=== PATIENT | female | born 1990 | race Caucasian/White ===

== ENCOUNTER 2017-01-10 17:36 | Emergency (ER) | payer SELFPAY | END 2017-01-10 17:57 | disposition left against medical advice (07) | LOC: ED 17:36 | DX: T62.91XA Toxic effect of unspecified noxious substance eaten as food, accidental (unintentional), initial encounter (principal); Y92.9 Unspecified place or not applicable; Z53.21 Procedure and treatment not carried out due to patient leaving prior to being seen by health care provider ==

== ENCOUNTER 2017-04-05 17:43 | Emergency (ER) | payer SELFPAY ==
[2017-04-05 18:59] LABS: Basophils % (Auto) 0.4 % (0.0-1.8); Eosinophils % (Auto) 0.2 % (0.0-4.3); Hematocrit 37.7 % (30.3-42.9); Hemoglobin 12.7 gm/dl (10.1-14.3); Mean Corpuscular HGB Conc 34 % (30-34); Mean Corpuscular Hemoglobin 31 pg (28-32); Mean Corpuscular Volume 92 fl (79-97); Platelet Count 262 K/mm3 (140-440); Red Blood Count 4.09 M/mm3 (3.65-5.03); Red Cell Distribution Width 13.7 % (13.2-15.2); White Blood Count 9.1 K/mm3 (4.5-11.0)
[2017-04-05] MEDS ORDERED: NACL 0.9% 1000 ML 1,000 ML IV ONE ×2 (19:11→22:19)
[2017-04-05] MEDS ORDERED: ZOFRAN IV ONE ×2 (19:11→23:13)
[2017-04-05] MEDS ORDERED: MORPHINE IV ONE (19:11)
--- NOTE | 2017-04-05 19:18 | Emergency Department Report ---
HPI - General Chief Complaint: Abdominal Pain Time Seen by Provider: 04/05/17 19:00 - HPI HPI: This is a 26-year-old [place] female presents to the emergency department, brought in by her mother, with complaint of generalized abdominal pain, nausea and vomiting and been going on since this morning. She is not taking anything for her symptoms prior to presentation. She says that she had some constipation at first and then diarrhea after that. She does not have any primary care physician. She denies any past medical history. She denies any fever, back pain, chest pain, shortness of breath. No recent travel or sick contacts at home. The abdominal pain is sharp and constant. ED Past Medical Hx - Past Medical History Previous Medical History?: No - Surgical History Past Surgical History?: No - Social History Smoking Status: Never Smoker Substance Use Type: None - Medications Home Medications: Home Medications Medication Instructions Recorded Confirmed Last Taken Type HYDROcodone/APAP 5-325 [[place] 1 each PO Q6HR PRN #8 tablet 04/06/17 Unknown Rx 5/325] Ondansetron [Zofran Odt] 4 mg PO Q8HR PRN #10 tab.rapdis 04/06/17 Unknown Rx ED Review of Systems ROS: Stated complaint: ABDOMINAL PAIN Other details as noted in HPI Comment: All other systems reviewed and negative Constitutional: denies: chills, fever Eyes: denies: eye pain, eye discharge, vision change ENT: denies: ear pain, throat pain Respiratory: denies: cough, shortness of breath, wheezing Cardiovascular: denies: chest pain, palpitations Gastrointestinal: abdominal pain, nausea, vomiting Genitourinary: denies: urgency, dysuria, discharge Musculoskeletal: denies: back pain, joint swelling, arthralgia Skin: denies: rash, lesions Neurological: denies: headache, weakness, paresthesias Physical Exam - Physical Exam Vital Signs: Vital Signs 04/05/17 04/05/17 17:51 18:08 Temperature 97.5 F L Pulse Rate 74 Respiratory 18 Rate Blood Pressure 129/105 [Right] O2 Sat by Pulse 99 100 Oximetry Physical Exam: GENERAL: The patient is well-developed well-nourished. HENT: Normocephalic. Atraumatic. Patient has moist mucous membranes. EYES: Extraocular motions are intact. Pupils equal reactive to light bilaterally. NECK: Supple. Trachea is midline. CHEST/LUNGS: Clear to auscultation. There is no respiratory distress noted. HEART/CARDIOVASCULAR: Regular. There is no tachycardia. There is no gallop rub or murmur. ABDOMEN: Abdomen is soft. There is generalized tenderness in the abdomen. No guarding or rebound tenderness. Patient has normal bowel sounds. There is no abdominal distention. SKIN: There is no rash. There is no edema. There is no diaphoresis. NEURO: The patient is awake, alert, and oriented. The patient is cooperative. The patient has no focal neurologic deficits. The patient has normal speech. MUSCULOSKELETAL: There is no tenderness or deformity. There is no limitation range of motion. There is no evidence of acute injury. ED Course Vital Signs 04/05/17 04/05/17 17:51 18:08 Temperature 97.5 F L Pulse Rate 74 Respiratory 18 Rate Blood Pressure 129/105 [Right] O2 Sat by Pulse 99 100 Oximetry ED Medical Decision Making - Lab Data Result diagrams: 04/05/17 18:50 04/05/17 18:50 - Radiology Data Radiology results: report reviewed EXAM: CT ABDOMEN PELVIS W CON HISTORY: Abd pain TECHNIQUE: Spiral CT scanning of the abdomen and pelvis after the uneventful administration of IV contrast. Multiplanar reformations. PRIORS: None. FINDINGS: Abdomen: Visualized lung bases grossly unremarkable. No radiopaque gallstones. Liver without significant abnormality. Spleen without significant abnormality. Pancreas without significant abnormality. Kidneys without significant abnormality. Adrenal glands without significant abnormality. Pelvis: The colon is incompletely or nondistended and demonstrates variable bowel wall and fold thickening, most pronounced in the left colon, with slight pericolonic vascular injection. Remainder of visualized bowel grossly unremarkable. Appendix within normal limits. No significant free peritoneal fluid or discrete abscess. Abdominal aorta non-aneurysmal. IMPRESSION: 1. Findings which may be due to incomplete or nondistention versus nonspecific postinflammatory change in the colon or colitis. Correlate clinically. - Medical Decision Making 26-year-old female presents with a one-day history of generalized abdominal pain , nausea and vomiting. She appears very uncomfortable upon first presentation. She was given IV fluid, Zofran, pain medication and began to improve. Labs are mostly unremarkable except for the 80 ketones in the urine showing dehydration. CT of the abdomen and pelvis shows some nonspecific findings, possibly colitis. She was reevaluated multiple times and the multiple hours and is greatly improved and resting comfortably. She later told me that she has some flareups of this undiagnosed recurrent abdominal pain and vomiting condition. She will be given a small amount of pain medication and a prescription for Zofran ODT at home. Most importantly, she will be given referrals for primary care and gastroenterology. She understands she may need an endoscopy and/or biopsy in the future for further evaluation she could have some type of underlying condition such as IBS, celiac, etc. She will return to the ER with any worsening or symptoms or any acute distress. - Differential Diagnosis gastroenteritis, colitis, bowel obstruction, celiac, IBS Critical Care Time: No Critical care attestation.: If time is entered above; I have spent that time in minutes in the direct care of this critically ill patient, excluding procedure time. ED Disposition Clinical Impression: Abdominal pain Qualifiers: Abdominal location: generalized Qualified Code(s): R10.84 - Generalized abdominal pain Nausea & vomiting Qualifiers: Vomiting type: unspecified Vomiting Intractability: non-intractable Qualified Code(s): R11.2 - Nausea with vomiting, unspecified Disposition: DC-01 TO HOME OR SELFCARE Is pt being admited?: No Condition: Stable Instructions: Acute Nausea and Vomiting (ED), Abdominal Pain (ED) Additional Instructions: Please follow-up with a primary care physician in the next few days. I have given you a referral for a local content designer, Dr. Momin, to follow up regarding your abdominal pain, nausea/vomiting episodes that occur intermittently. Increase your oral rehydration. Return to the emergency Department with any worsening of your symptoms or any acute distress. You have been prescribed a medication that is sedating and therefore should not be taken prior to driving, working, and responsible for children and in no way should be mixed with alcohol of any quantity. Prescriptions: HYDROcodone/APAP 5-325 [[place] 5/325] 1 each PO Q6HR PRN #8 tablet PRN Reason: Pain Ondansetron [Zofran Odt] 4 mg PO Q8HR PRN #10 tab.rapdis PRN Reason: Nausea Referrals: PRIMARY CARE, [Primary Care Provider] - 3-5 Days PREETI MOMIN MD [Staff Physician] - 3-5 Days [facility] [Outside] - 3-5 Days [facility] [Outside] - 3-5 Days [facility] [Outside] - 3-5 Days [facility] [Outside] - 3-5 Days Time of Disposition: 00:19
[2017-04-05 19:23] LABS: Alanine Aminotransferase 24 units/L (7-56); Albumin 4.8 g/dL (3.9-5); Albumin/Globulin Ratio 1.6 %; Alkaline Phosphatase 40 units/L (35-129); Anion Gap 27 mmol/L; BUN/Creatinine Ratio 17.14; Blood Urea Nitrogen 12 mg/dL (7-17); Calcium 9.6 mg/dL (8.4-10.2); Carbon Dioxide 17 mmol/L (22-30); Chloride 102.6 mmol/L (98-107); Glucose 123 mg/dL (65-100); Lipase 20 units/L (13-60); Potassium 3.3 mmol/L (3.6-5.0); Sodium 143 mmol/L (137-145); Total Protein 7.8 g/dL (6.3-8.2)
[2017-04-05 19:47] LABS: Bilirubin,Urine NEG (Negative); Blood,Urine NEG (Negative); Ketones,Urine 80 mg/dL (Negative); Leukocyte Esterase,Urine NEG (Negative); Mucus,Urine FEW /HPF; Nitrite,Urine NEG (Negative); Protein,Urine <15 mg/dL mg/dL (Negative); Urobilinogen,Urine < 2.0 mg/dL (<2.0)
--- NOTE | 2017-04-05 22:24 | Cat Scan Report ---
FINAL REPORT EXAM: CT ABDOMEN PELVIS W CON HISTORY: Abd pain TECHNIQUE: Spiral CT scanning of the abdomen and pelvis after the uneventful administration of IV contrast. Multiplanar reformations. PRIORS: None. FINDINGS: Abdomen: Visualized lung bases grossly unremarkable. No radiopaque gallstones. Liver without significant abnormality. Spleen without significant abnormality. Pancreas without significant abnormality. Kidneys without significant abnormality. Adrenal glands without significant abnormality. Pelvis: The colon is incompletely or nondistended and demonstrates variable bowel wall and fold thickening, most pronounced in the left colon, with slight pericolonic vascular injection. Remainder of visualized bowel grossly unremarkable. Appendix within normal limits. No significant free peritoneal fluid or discrete abscess. Abdominal aorta non-aneurysmal. IMPRESSION: 1. Findings which may be due to incomplete or nondistention versus nonspecific postinflammatory change in the colon or colitis. Correlate clinically.
[2017-04-05] MEDS ORDERED: ZOFRAN ONE (23:11)
[2017-04-06 00:34] VITALS: BP 105/58
== END 2017-04-06 00:32 | disposition home or self-care (01) ==
LOC: ED 17:43
DX: R10.84 Generalized abdominal pain (principal); R11.2 Nausea with vomiting, unspecified
CPT/HCPCS: 36415; 74177; 80053; 81001; 83690; 84703; 85025; 96361; 96374; 96375; 99284; J2270; J2405; J7030; Q9967